=== PATIENT | male | born 1990 | race Two or more races ===

== ENCOUNTER 2019-07-12 19:49 | Emergency (ER) | payer SELFPAY ==
[~2019-07-12] VITALS: Ht 172.7 cm; Wt 72.1 kg
[2019-07-12 19:51] VITALS: BP 156/92
--- NOTE | 2019-07-12 20:29 | NUR ---
Note sumla in EDM - 07/12/19 at 2030 by TONG Pt here for right ear abrasion after alterication. Wound dressed and cleaned. Pt tolerated well. Neomycin applied and protective dressing on now.
[2019-07-12] MEDS ORDERED: DIPH,PERTUSS(ACELL),TET VAC/PF 0.5 ML IM-VACC ONE (20:30)
--- NOTE | 2019-07-12 20:32 | NUR ---
Pt here for right ear abrasion after alterication. Wound dressed and cleaned. Pt tolerated well. Neomycin applied and protective dressing on now.
--- NOTE | 2019-07-12 20:53 | NUR ---
Patient/Caregiver given discharge instructions and they have confirmed that they understand the instructions. Patient ambulatory with steady gait.
== END 2019-07-12 20:54 | disposition home or self-care (01) ==
LOC: ED 20:38
DX: S01.311D Laceration without foreign body of right ear, subsequent encounter (principal); X58.XXXD Exposure to other specified factors, subsequent encounter
CPT/HCPCS: 90471; 90715; 99283